=== PATIENT | male | born 1940 | race Caucasian/White ===

== ENCOUNTER 2017-05-30 12:30 | Outpatient (RCR) | payer MEDICARE, OTHER ==
[~2017-05-30 12:30] MED LIST: ASPIRIN 32325 MG/TAB PO; ASPIRIN 81M81 MG/TA2 PO; ASPIRIN E.C. 8181 MG PO; BYSTOLIC10 MG PO; CARAFATE 1GM1 G PO; CARDURA 8MG TAB8 MG PO; CARDURA4 MG PO; CEPHALEXIN500 M1 PO; DIOVAN; FLOVENT 110MCG7.9 GM IH; HYZAAR 12.5 MG-1 TAB PO; KLOR-CON 1010 MEQ PO; LEXAPRO 10MG10 MG PO; LIPITOR 10MG10 MG PO; PLAVIX 75MG TAB75 MG PO; PRILOSEC 20MG20 MG PO; PROSCAR 5MG5 MG PO; PROTONIX 40MG T40 MG PO; PROTONIX20 MG PO; ZYRTEC 10MG10 MG PO
== END 2017-08-28 | disposition home or self-care (01) ==
LOC: WSST
DX: R13.12 Dysphagia, oropharyngeal phase (principal)
CPT/HCPCS: G8996-GN; G8997-GN

== ENCOUNTER → 2017-06-04 | Outpatient (CLI) | payer MEDICARE, OTHER | LOC: COL.RAD 14:25 | DX: R13.19 Other dysphagia (principal) | CPT/HCPCS: G8996-GN; G8997-GN; G8998-GN ==

== ENCOUNTER → 2018-07-13 | Outpatient (CLI) | payer MEDICARE, OTHER ==
[~2018-07-13] MED LIST changes: -BYSTOLIC10 MG PO; +BYSTOLIC5 MG PO; +FLOMAX 0.40.4 MG/CAP PO; -LEXAPRO 10MG10 MG PO; +LEXAPRO20 MG PO; +MYRBETR50MG PO; +NATURAL IRON65 MG PO; +TYLENOL 500MG500 MG PO
[2018-07-13 13:13] LABS: COLLECTION METHOD CLEAN CATCH
[2018-07-13 13:21] LABS: MUCOUS Present /lpf; PH 6 (5-8); SQUAMOUS EPITHELIAL None Seen /hpf; URINE APPEARANCE Clear; URINE BACTERIA None Seen /hpf; URINE BILIRUBIN Negative (NEGATIVE); URINE BLOOD Negative (NEGATIVE); URINE COLOR Yellow; URINE GLUCOSE Negative (NEGATIVE); URINE KETONE Negative (NEGATIVE); URINE LEUKOCYTE ESTERASE Negative (NEGATIVE); URINE NITRATE Negative (NEGATIVE); URINE PROTEIN(semi-quant) Negative (NEGATIVE); URINE RBC 0-2 /hpf; URINE UROBILINOGEN Negative (NEGATIVE); URINE WBC 0-2 /hpf
== END ==
LOC: COL.LAB 12:39
PROVIDERS: Family Medicine
DX: R35.1 Nocturia (principal); R53.1 Weakness

== ENCOUNTER 2018-10-07 17:32 | Emergency (ER) | payer MEDICARE, OTHER ==
[~2018-10-07] VITALS: Ht 177.8 cm; Wt 81.8 kg
[2018-10-07 18:51] LABS: BASO % 0.3 % (0.0-2.0); EOS # 0.1 (0.0-0.7); EOS % 0.7 % (0-4.0); GRAN # 5.4 (1.4-6.5); GRAN % 76.1 % (42.2-75.2); HEMATOCRIT 39.9 % (42.0-52.0); HEMOGLOBIN 13.2 g/dl (13.5-18.0); LYMPH # 0.8 (1.2-3.4); LYMPH % 11.3 % (20.0-51.0); MEAN CELL VOLUME 82 fl (80.0-100.0); MEAN CORPUSCULAR HEMOGLOBIN 27 pg (27.0-31.0); MEAN CORPUSCULAR HGB CONC 33 g/dl (33.0-37.0); MEAN PLATELET VOLUME 10.5 fl (7.4-10.4); MONO # 0.8 (0.1-0.6); MONO % 11.3 % (1.7-9.3); PLATELET COUNT 253 K/mm3 (130-400); RED BLOOD COUNT 4.84 M/mm3 (4.20-5.60); REDCELL DISTRIBUTION WIDTH-CV 14.6 % (11.5-14.5)
[2018-10-07 19:00] LABS: ALBUMIN 4.2 gm/dL (3.5-5.0); CALCIUM 9.3 mg/dL (8.4-10.2); CREATININE, serum 0.99 mg/dL (0.66-1.25); POTASSIUM 4.1 mmol/L (3.4-5.0); TOTAL PROTEIN 7.2 gm/dL (6.4-8.2)
[2018-10-07] MEDS ORDERED: HYDROCORTISONE30 G3 TP (19:22)
[2018-10-07] MEDS ORDERED: HYZAAR 12.5 MG-1 TAB PO (19:24)
[2018-10-07] MEDS ORDERED: FLONASEALLERGY NS (19:26)
[2018-10-07] MEDS ORDERED: ZYRTEC 10MG10 MG PO (19:26)
[2018-10-07 21:13] LABS: COLLECTION METHOD CLEAN CATCH
[2018-10-07 21:25] VITALS: BP 160/83; PULSE 70
[2018-10-07 21:27] LABS: MUCOUS Present /lpf; PH 6 (5-8); SQUAMOUS EPITHELIAL None Seen /hpf; URINE APPEARANCE Clear; URINE BACTERIA None Seen /hpf; URINE BILIRUBIN Negative (NEGATIVE); URINE BLOOD Negative (NEGATIVE); URINE COLOR Yellow; URINE GLUCOSE Negative (NEGATIVE); URINE KETONE Negative (NEGATIVE); URINE LEUKOCYTE ESTERASE Negative (NEGATIVE); URINE NITRATE Negative (NEGATIVE); URINE PROTEIN(semi-quant) Negative (NEGATIVE); URINE RBC 0-2 /hpf; URINE UROBILINOGEN Negative (NEGATIVE)
== END 2018-10-07 21:25 | disposition short-term general hospital (02) ==
LOC: COL.ER 17:32
PROVIDERS: Family Medicine
DX: S12.100A Unspecified displaced fracture of second cervical vertebra, initial encounter for closed fracture (principal); J20.9 Acute bronchitis, unspecified; I10 Essential (primary) hypertension; F03.90 Unspecified dementia, unspecified severity, without behavioral disturbance, psychotic disturbance, mood disturbance, and anxiety; Z79.02 Long term (current) use of antithrombotics/antiplatelets; Z79.51 Long term (current) use of inhaled steroids; Z86.73 Personal history of transient ischemic attack (TIA), and cerebral infarction without residual deficits; W18.39XA Other fall on same level, initial encounter
CPT/HCPCS: A4216; J0696; J7030

== ENCOUNTER → 2018-11-26 | Outpatient (CLI) | payer MEDICARE ==
[~2018-11-26] MED LIST changes: +FLONASEALLERGY NS; +HYDROCORTISONE30 G3 TP
== END ==
LOC: COL.RAD 13:24
DX: S12.190D Other displaced fracture of second cervical vertebra, subsequent encounter for fracture with routine healing (principal); M46.92 Unspecified inflammatory spondylopathy, cervical region

== ENCOUNTER → 2019-01-02 | Outpatient (CLI) | payer MEDICARE | LOC: COL.RAD 09:48 | DX: S12.111D Posterior displaced Type II dens fracture, subsequent encounter for fracture with routine healing (principal); M47.812 Spondylosis without myelopathy or radiculopathy, cervical region ==

== ENCOUNTER → 2019-07-24 | Outpatient (CLI) | payer MEDICARE ==
[2019-07-24 18:01] LABS: BASO % 0.2 % (0.0-2.0); EOS # 0.1 (0.0-0.7); EOS % 1.3 % (0-4.0); GRAN # 6.8 (1.4-6.5); GRAN % 77.7 % (42.2-75.2); HEMATOCRIT 37.9 % (42.0-52.0); HEMOGLOBIN 12.1 g/dl (13.5-18.0); LYMPH # 0.8 (1.2-3.4); LYMPH % 8.8 % (20.0-51.0); MEAN CELL VOLUME 82 fl (80.0-100.0); MEAN CORPUSCULAR HEMOGLOBIN 26 pg (27.0-31.0); MEAN CORPUSCULAR HGB CONC 32 g/dl (33.0-37.0); MEAN PLATELET VOLUME 11.1 fl (7.4-10.4); MONO % 11.7 % (1.7-9.3); PLATELET COUNT 246 K/mm3 (130-400); RED BLOOD COUNT 4.62 M/mm3 (4.20-5.60); REDCELL DISTRIBUTION WIDTH-CV 15.2 % (11.5-14.5)
[2019-07-24 18:30] LABS: ALBUMIN 4.1 gm/dL (3.5-5.0); CALCIUM 9.4 mg/dL (8.4-10.2); CREATININE, serum 0.92 (0.66-1.25); POTASSIUM 3.9 mmol/L (3.4-5.0); TOTAL PROTEIN 6.6 gm/dL (6.4-8.2)
== END ==
LOC: ZCOL.LAB 15:58
PROVIDERS: Internal Medicine
DX: R41.82 Altered mental status, unspecified (principal)

== ENCOUNTER → 2020-03-29 | Outpatient (CLI) | payer MEDICARE ==
[2020-03-29 10:29] LABS: BILIRUBIN,TOTAL 0.6 mg/dL (0.0-1.0); CALCIUM 9.3 mg/dL (8.4-10.2); CREATININE, serum 0.83 (0.66-1.25); POTASSIUM 4.1 mmol/L (3.4-5.0); TOTAL PROTEIN 6.7 gm/dL (6.4-8.2)
[2020-03-29 10:38] LABS: BASO % 0.3 % (0.0-2.0); EOS # 0.3 (0.0-0.7); EOS % 3.7 % (0-4.0); GRAN # 5.1 (1.4-6.5); GRAN % 71.3 % (42.2-75.2); HEMATOCRIT 39.4 % (42.0-52.0); HEMOGLOBIN 12.6 g/dl (13.5-18.0); MEAN CELL VOLUME 83 fl (80.0-100.0); MEAN CORPUSCULAR HEMOGLOBIN 27 pg (27.0-31.0); MEAN CORPUSCULAR HGB CONC 32 g/dl (33.0-37.0); MEAN PLATELET VOLUME 10.8 fl (7.4-10.4); MONO # 0.7 (0.1-0.6); MONO % 10.3 % (1.7-9.3); PLATELET COUNT 250 K/mm3 (130-400); RED BLOOD COUNT 4.73 M/mm3 (4.20-5.60); REDCELL DISTRIBUTION WIDTH-CV 15.9 % (11.5-14.5)
== END ==
LOC: ZCOL.LAB 09:15
PROVIDERS: Internal Medicine
DX: C85.90 Non-Hodgkin lymphoma, unspecified, unspecified site (principal)

== ENCOUNTER → 2020-04-05 | Outpatient (CLI) | payer MEDICARE ==
[~2020-04-05] MED LIST changes: +ARTIFICIAL TEAR15 M7 OP; +B-121000 MCG PO; +DULCOLAX S10 MG/SUPP RC; +GOOD NEIGH1200 MG/15; +IMODIUM 2MG CAPS2 MG PO; +LEXAPRO 10MG10 MG PO; -LEXAPRO20 MG PO; +LOPRESSOR 225 MG/TAB PO; +MIRALAX PA17 GM/Dose PO; +MULTIPLE VITAMI1 TA1 PO; +NORVASC 10MG10 MG PO; +PROAIR HFA0.09 MG/AC IH; +REMERON 15M15 MG/TA1 PO; +SENNA-LAX8.6 MG PO; +SEROQUEL 2525 MG/TAB PO; +SINEMET 25/101 UDTAB PO; +SYSTANE 0.4%-0.1 SOL OP; +TUSSIN DM CLEA120 ML PO; +TYLENOL 325MG325 MG PO; +TYLENOL SU650 MG/SUP RC; +ULTRAM 50MG TAB50 MG PO
== END ==
LOC: ZCOL.LAB 17:24
DX: R50.81 Fever presenting with conditions classified elsewhere (principal); Z20.828 Contact with and (suspected) exposure to other viral communicable diseases

== ENCOUNTER 2020-04-08 15:20 | Inpatient (IN) | payer MEDICARE ==
[~2020-04-08] VITALS: Ht 175.3 cm; Wt 75.4 kg
[~2020-04-08 15:20] MED LIST changes: -ARTIFICIAL TEAR15 M7 OP; -B-121000 MCG PO; -DULCOLAX S10 MG/SUPP RC; -GOOD NEIGH1200 MG/15; -IMODIUM 2MG CAPS2 MG PO; -LOPRESSOR 225 MG/TAB PO; -MIRALAX PA17 GM/Dose PO; -MULTIPLE VITAMI1 TA1 PO; -NORVASC 10MG10 MG PO; -PROAIR HFA0.09 MG/AC IH; -REMERON 15M15 MG/TA1 PO; -SENNA-LAX8.6 MG PO; -SEROQUEL 2525 MG/TAB PO; -SINEMET 25/101 UDTAB PO; -SYSTANE 0.4%-0.1 SOL OP; -TUSSIN DM CLEA120 ML PO; -TYLENOL 325MG325 MG PO; -TYLENOL SU650 MG/SUP RC; -ULTRAM 50MG TAB50 MG PO
[2020-04-08 16:19] VITALS: BP 138/72; PULSE 92; TEMP 101.8
--- NOTE | 2020-04-08 16:29 | NUR ---
Pt to room 304, pt laying in bed, some groaning to verbal stimuli, occasional eye open response. Minimal response to verbal commands, unable to answer questions. Pt on room air, satting 93-94%. Pulses strong bilaterally. No edema noted. Breathing is labored, tachypneic. [facility]. Hospitalist aware pt is on floor.
[2020-04-08] MEDS ORDERED: TYLENOL SU650 MG/SUP RC (17:09)
[2020-04-08] MEDS ORDERED: TYLENOL 325MG325 MG PO (17:13)
[2020-04-08] MEDS ORDERED: PROAIR HFA0.09 MG/AC IH (17:17)
[2020-04-08] MEDS ORDERED: NORVASC 10MG10 MG PO (17:18)
[2020-04-08] MEDS ORDERED: ARTIFICIAL TEAR15 M7 OP (17:19)
[2020-04-08] MEDS ORDERED: DULCOLAX S10 MG/SUPP RC (17:21)
[2020-04-08] MEDS ORDERED: SINEMET 25/101 UDTAB PO (17:22)
[2020-04-08] MEDS ORDERED: B-121000 MCG PO (17:23)
[2020-04-08] MEDS ORDERED: IMODIUM 2MG CAPS2 MG PO (17:28)
[2020-04-08] MEDS ORDERED: LOPRESSOR 225 MG/TAB PO (17:30)
[2020-04-08] MEDS ORDERED: MIRALAX PA17 GM/Dose PO (17:31)
[2020-04-08] MEDS ORDERED: REMERON 15M15 MG/TA1 PO (17:33)
[2020-04-08] MEDS ORDERED: MULTIPLE VITAMI1 TA1 PO (17:35)
[2020-04-08] MEDS ORDERED: GOOD NEIGH1200 MG/15 (17:36)
[2020-04-08] MEDS ORDERED: SENNA-LAX8.6 MG PO (17:39)
[2020-04-08] MEDS ORDERED: SEROQUEL 2525 MG/TAB PO (17:40)
[2020-04-08] MEDS ORDERED: SYSTANE 0.4%-0.1 SOL OP (17:41)
[2020-04-08] MEDS ORDERED: ULTRAM 50MG TAB50 MG PO (17:46)
[2020-04-08] MEDS ORDERED: TUSSIN DM CLEA120 ML PO (17:47)
--- NOTE | 2020-04-08 19:47 | NUR ---
Pt laying in bed, still minimal response. Pt changed and gown placed on pt. Labs drawn. NS started at 100ml/hr. Pt doesn't appear to be in distress. Med rec completed by ERNESTINA Wiseman. Hospitalist aware. No episode of incontinence at this time. No further needs expressed. Report given to ERNESTINA Lea.
[2020-04-08 20:00] VITALS: BP 150/70; PULSE 84; TEMP 102.1
--- NOTE | 2020-04-08 20:00 | NUR ---
At time of assessment, patient is sleeeping in bed. He does not awaken to voice, but does open eyes to sternal rub. It takes him a few minutes to remain alert for more than a few seconds at a time. He does not answer any orientation questions; he only moans. Heart sounds are normal/regular, lungs are diminished in bases with expiratory wheezes bilaterally in upper lobes. No edema is present and patient does not appear to be in pain. Temperature is 102.1 at this time and Tylenol suppository 325 mg is adminsitered. Patient is not alert enough to swallow PO meds. He does not follow commands. Urine is obtained at this time via straight cath for UA. Patient is on RA and satting 94%. Will continue to monitor.
[2020-04-08 20:13] LABS: ALBUMIN 4.4 gm/dL (3.5-5.0); BILIRUBIN,TOTAL 1.3 mg/dL (0.0-1.0); CALCIUM 9.5 mg/dL (8.4-10.2); CREATININE, serum 0.9 (0.66-1.25); MAGNESIUM 2.1 mg/dL (1.6-2.3); POTASSIUM 3.6 mmol/L (3.4-5.0); TOTAL PROTEIN 7.8 gm/dL (6.4-8.2)
[2020-04-08 20:22] LABS: TROPONIN-I 0.014 ng/mL (0.000-0.035)
[2020-04-08 20:28] LABS: C-REACTIVE PROTEIN 16.8 mg/dL (0.0-0.9)
[2020-04-08 20:30] LABS: COLLECTION METHOD CLEAN CATCH
[2020-04-08 20:31] LABS: HEMATOCRIT 39.1 % (42.0-52.0); HEMOGLOBIN 12.3 g/dl (13.5-18.0); MEAN CELL VOLUME 86 fl (80.0-100.0); MEAN CORPUSCULAR HEMOGLOBIN 27 pg (27.0-31.0); MEAN CORPUSCULAR HGB CONC 32 g/dl (33.0-37.0); MEAN PLATELET VOLUME 10.5 fl (7.4-10.4); PLATELET COUNT 233 K/mm3 (130-400); RED BLOOD COUNT 4.57 M/mm3 (4.20-5.60); REDCELL DISTRIBUTION WIDTH-CV 15.7 % (11.5-14.5)
[2020-04-08 20:33] LABS: INR 1.2 (0.8-3.0); PROTHROMBIN TIME 12.9 SECONDS (9.7-12.8)
[2020-04-08 20:36] LABS: MUCOUS Present /lpf; PH 5 (5-8); SQUAMOUS EPITHELIAL 0-2 /hpf; URINE APPEARANCE Hazy; URINE BACTERIA None Seen /hpf; URINE BILIRUBIN Negative (NEGATIVE); URINE BLOOD Negative (NEGATIVE); URINE COLOR Amber; URINE GLUCOSE Negative (NEGATIVE); URINE KETONE Trace (NEGATIVE); URINE LEUKOCYTE ESTERASE Negative (NEGATIVE); URINE NITRATE Negative (NEGATIVE); URINE PROTEIN(semi-quant) 1+ (NEGATIVE); URINE UROBILINOGEN >=4.0 mg/dL (NEGATIVE)
[2020-04-08 22:43] LABS: BAND 27 % (0-10); LYMPHOCYTE 7 % (20.0-51.0); METAMYELOCYTE 1 % (0-0); NEUTROPHILS 60 % (42.0-75.2); PLATELET ESTIMATE NORMAL (NORMAL)
[2020-04-08 22:44] LABS: ANISOCYTOSIS 1+; HYPOCHROMIA 1+
[2020-04-09] VITALS (7 sets, daily range): BP systolic 120–156; BP diastolic 64–88; PULSE 67–90; TEMP 98.6–101.1
[2020-04-09 05:30] LABS: HEMOGLOBIN 11.8 g/dl (13.5-18.0); MEAN CELL VOLUME 84 fl (80.0-100.0); MEAN CORPUSCULAR HEMOGLOBIN 27 pg (27.0-31.0); MEAN CORPUSCULAR HGB CONC 32 g/dl (33.0-37.0); MEAN PLATELET VOLUME 10.6 fl (7.4-10.4); PLATELET COUNT 200 K/mm3 (130-400); RED BLOOD COUNT 4.38 M/mm3 (4.20-5.60); REDCELL DISTRIBUTION WIDTH-CV 15.8 % (11.5-14.5)
[2020-04-09 05:35] LABS: ALBUMIN 3.8 gm/dL (3.5-5.0); BILIRUBIN,TOTAL 1.1 mg/dL (0.0-1.0); CALCIUM 8.8 mg/dL (8.4-10.2); CREATININE, serum 0.89 (0.66-1.25); MAGNESIUM 2.2 mg/dL (1.6-2.3); POTASSIUM 3.9 mmol/L (3.4-5.0); TOTAL PROTEIN 6.9 gm/dL (6.4-8.2)
[2020-04-09 05:44] LABS: HEMATOCRIT 36.9 % (42.0-52.0)
[2020-04-09 05:58] LABS: ERYTHROCYTE SEDIMENTATION RATE 18 mm/hr (0-30)
[2020-04-09 06:03] LABS: BAND 23 % (0-10); HYPOCHROMIA 2+; LYMPHOCYTE 22 % (20.0-51.0); NEUTROPHILS 44 % (42.0-75.2); PLATELET ESTIMATE NORMAL (NORMAL)
[2020-04-09 06:04] LABS: ANISOCYTOSIS 1+
--- NOTE | 2020-04-09 06:16 | NUR ---
Patient has remained solmnolent throughout the night, arousing/opening eyes only to painful stimuli. He has been unable to take PO meds. His TMAX over the shift was 102.1 and Tylenol suppositories have been administered throughout the shift. Will continue to monitor.
--- NOTE | 2020-04-09 14:37 | NUR ---
The patient is COVID positive and has a past medical history of dementia. PARAS contacted the patient's , Nat (ph#[phone]), to discuss discharge plan. The patient resides at [facility] in long-term at [facility]. His PCP is Dr. Yasir Toribio and his advanced directives are in his chart. The patient's DPOA-HC is his . Nat reports that the plan is for the patient to return back to [facility] upon discharge. PARAS contacted and faxed updates to Jumana at [facility]. Jumana reports that they are figuring out what the plan will be for the patient when he returns, due to him being COVID positive. PARAS to continue to follow.
--- NOTE | 2020-04-09 19:36 | NUR ---
Pt assessment completed and charted. Pt more alert this morning, partially oriented, some garbled speech, difficult to understand. Medications administered per NOV. Pt tolerated well 1-2 at a time. Pt had temp of 100.3, received PO tylenol PRN. Next temp noted at 99.6. Pt has 18g LWR IV w/ NS @60ml/hr running w/o complications. Diet advanced to [facility] soft for dinner. Pt tolerating liquids fine. Tele dc'd per verbal order from Dr. Ratliff. Pt on room air, satting well. Insp/exp wheezes noted in LS. Pt has episodes of incontinence, wearing brief, assisted to bedside commode w/ no output. No edema noted, pulses strong bilaterally. pt cooperative w/ cares, denies pain, doesn't appear to be in distress. No further needs expressed.
--- NOTE | 2020-04-10 02:41 | NUR ---
Patient has been alert but confused this shift. Patient did requires one dose of tylenol for a low grade temperature. Patient had no complaints of pain or nausea this shift. Patient was able to maintain oxygen saturations while on room air.
[2020-04-10 04:36] VITALS: BP 138/72; PULSE 65; TEMP 98.2
[2020-04-10 08:00] VITALS: BP 128/72; PULSE 60; TEMP 99
[2020-04-10 08:12] LABS: HEMATOCRIT 37.9 % (42.0-52.0); HEMOGLOBIN 11.9 g/dl (13.5-18.0); MEAN CELL VOLUME 86 fl (80.0-100.0); MEAN CORPUSCULAR HEMOGLOBIN 27 pg (27.0-31.0); MEAN CORPUSCULAR HGB CONC 31 g/dl (33.0-37.0); MEAN PLATELET VOLUME 10.9 fl (7.4-10.4); PLATELET COUNT 194 K/mm3 (130-400); RED BLOOD COUNT 4.42 M/mm3 (4.20-5.60); REDCELL DISTRIBUTION WIDTH-CV 16.1 % (11.5-14.5)
[2020-04-10 08:30] LABS: ALBUMIN 3.6 gm/dL (3.5-5.0); BILIRUBIN,TOTAL 0.8 mg/dL (0.0-1.0); CALCIUM 8.6 mg/dL (8.4-10.2); CREATININE, serum 0.81 (0.66-1.25); POTASSIUM 4.1 mmol/L (3.4-5.0); TOTAL PROTEIN 6.6 gm/dL (6.4-8.2)
[2020-04-10 10:21] VITALS: BP 126/72; PULSE 60; TEMP 99
[2020-04-10 10:50] LABS: BAND 22 % (0-10); EOSINOPHIL 2 % (0-4); LYMPHOCYTE 25 % (20.0-51.0); NEUTROPHILS 33 % (42.0-75.2); PLATELET ESTIMATE NORMAL (NORMAL)
[2020-04-10 15:52] VITALS: BP 125/70; PULSE 55; TEMP 98.8
--- NOTE | 2020-04-10 17:41 | NUR ---
pt combative in morning when attempting to change his brief, pt incontinent x4 today, pt did not eat any food pt claimed he was not hungry, pt ripped out iv, new one started in RFA, fluids going, pt does not take pills well. pt hard to understand, hard to determine if oriented or confused do to inability to understand him. pt has remained afebrile and satting well on room air. no other needs at this time.
--- NOTE | 2020-04-10 18:01 | NUR ---
pt ate 4 bites of dinner, pt then refused the rest. pt appears to be hallucinating, i had noticed earlier he was miming the action of pulling something through his fingers and there was nothing there. while i was trying to help him eat he kept saying "look at the dog over there" and there was no dog in the room. the pt also stated he would eat the food he had in his hand instead of dinner when he did not have any food.
[2020-04-10 20:00] VITALS: BP 138/78; PULSE 72; TEMP 98.4
--- NOTE | 2020-04-10 22:00 | NUR ---
PT SOMEWHAT AGGRESSIVE DURING CARE. HE DENIES PAIN. NO INDICATION OF DYSPNEA AT REST THOUGH RESPIRATIONS INCREASE WHEN HE GETS AGITATED.
[2020-04-11] VITALS: BP 130/70; PULSE 68; TEMP 98.6
[2020-04-11 04:00] VITALS: BP 130/68; PULSE 70; TEMP 99.5
[2020-04-11 07:41] LABS: BASO % 0.3 % (0.0-2.0); EOS % 0.3 % (0-4.0); GRAN # 2.6 (1.4-6.5); GRAN % 65.5 % (42.2-75.2); HEMOGLOBIN 11.8 g/dl (13.5-18.0); LYMPH # 0.7 (1.2-3.4); LYMPH % 18.6 % (20.0-51.0); MEAN CELL VOLUME 83 fl (80.0-100.0); MEAN CORPUSCULAR HEMOGLOBIN 27 pg (27.0-31.0); MEAN CORPUSCULAR HGB CONC 32 g/dl (33.0-37.0); MEAN PLATELET VOLUME 10.8 fl (7.4-10.4); MONO # 0.6 (0.1-0.6); MONO % 14.8 % (1.7-9.3); PLATELET COUNT 170 K/mm3 (130-400); RED BLOOD COUNT 4.43 M/mm3 (4.20-5.60); REDCELL DISTRIBUTION WIDTH-CV 15.3 % (11.5-14.5)
[2020-04-11 07:44] LABS: HEMATOCRIT 36.7 % (42.0-52.0)
[2020-04-11 09:24] VITALS: BP 122/70; PULSE 65; TEMP 100.1
--- NOTE | 2020-04-11 09:40 | NUR ---
PT MEDICATIONS GIVEN CRUSHED IN APPLESAUCE. PT DID NOT WANT TO TAKE THEM, TOOK A LOT OF CONVINCING BEFORE ADMINISTRATION, PT REFUSED HEPARIN SHOT. PT COMBATIVE WITH NIGHTS, DISAGREEABLE DURING BED CHANGE AND BED BATH THAT WAS GIVEN. PT HAD FEVER SO TYLENOL SUPPOSITORY GIVEN. DURING BED CHANGE DISCOVERED PT HAD BM, SMALL AMOUNT AND BROWN. ORAL CARE PROVIDED. ASSESSMENT PERFORMED, VITALS TAKEN. ATTEMPTED TO FEED PT BREAKFAST, HE TOOK ONE BITE BEFORE REFUSING THE REST.
[2020-04-11 12:42] VITALS: BP 132/67; PULSE 94; TEMP 100
[2020-04-11 14:43] LABS: ALBUMIN 3.2 gm/dL (3.5-5.0); BILIRUBIN,TOTAL 0.8 mg/dL (0.0-1.0); CALCIUM 8.3 mg/dL (8.4-10.2); CREATININE, serum 0.71 (0.66-1.25); TOTAL PROTEIN 5.9 gm/dL (6.4-8.2)
[2020-04-11 15:15] VITALS: BP 135/64; PULSE 75; TEMP 100.1
--- NOTE | 2020-04-11 17:12 | NUR ---
PT INCONTINENT X3. BED BATH PROVIDED, WASHED PT HAIR, ORAL CARE PROVIDED, SHEETS CHANGED, INCONTINENT/PERICARE PROVIDED. PT DID NOT EAT BREAKFAST OR LUNCH. TALKED TO NURSE AT [facility] FOR UPDATE. TALKED TO PT AND WENT IN TO ANSWER THE PHONE FOR PT. PT SEEMED PLEASE TO TALK TO . INFORMED ME HE LIKED ICECREAM AND HAM SANDWICHES, SOMETIMES TURKEY TOO. BROUGHT IN ICE CREAM AND TURKEY SANDWICH. PT ATE 75% OF ICE CREAM CUP, REFUSED THE SANDWICH. PT CONTINUALLY RUNNING FEVER DESPITE TYLENOL ADMINISTRATION. USED MOSTLY TYLENOL SUPPOSITORY DUE TO PT BEING NONCOMPLIANT WITH PILLS. PT VITALS STABLE, PT HAS ACTIVE NON PRODUCTIVE COUGH.
--- NOTE | 2020-04-11 19:15 | NUR ---
Received report from Celine. Seen patient awake, lying in bed. Bed alarm on. He is alert and talking but can't hardly understand what he's trying to say. With IV on righ forearm, infusing NS at 60ml/hr. With SCD on both lower extremities. On room air. Not in distress.
[2020-04-11 20:33] VITALS: BP 110/80; PULSE 62; TEMP 99.5
--- NOTE | 2020-04-11 21:00 | NUR ---
Day shift nurse endorsed that patient likes ice cream and doesn't take his pills very well. Due meds for tonight were crushed and mixed with chocolate ice cream. At first, patient doesn't want to take it but able to convinced him and gave it to him. He requested for water and when I'm about to give it to him, he became aggressive and doesn't want to drink it.
[2020-04-12 00:08] VITALS: BP 132/82; PULSE 78; TEMP 100.4
--- NOTE | 2020-04-12 00:40 | NUR ---
Changed patient's briefs and repositioned him. Patient's temp is 100.4F. Tylenol suppository given.
[2020-04-12 04:00] VITALS: BP 124/74; PULSE 74; TEMP 100.4
--- NOTE | 2020-04-12 05:30 | NUR ---
Patient's temp is 100.4F. Tylenol suppository given. Briefs were changed and repositioned patient. He is still have some episodes of resisting whenever a procedure needs to be done. Oral care done using swabs.
[2020-04-12 07:14] LABS: ALBUMIN 3.4 gm/dL (3.5-5.0); BILIRUBIN,TOTAL 0.7 mg/dL (0.0-1.0); CALCIUM 8.3 mg/dL (8.4-10.2); CREATININE, serum 0.68 (0.66-1.25); MAGNESIUM 2.1 mg/dL (1.6-2.3); POTASSIUM 3.5 mmol/L (3.4-5.0); TOTAL PROTEIN 6.4 gm/dL (6.4-8.2)
[2020-04-12 07:18] LABS: BASO % 0.2 % (0.0-2.0); EOS % 0.2 % (0-4.0); GRAN % 78.2 % (42.2-75.2); HEMOGLOBIN 11.4 g/dl (13.5-18.0); LYMPH # 0.6 (1.2-3.4); LYMPH % 11.6 % (20.0-51.0); MEAN CELL VOLUME 82 fl (80.0-100.0); MEAN CORPUSCULAR HEMOGLOBIN 26 pg (27.0-31.0); MEAN CORPUSCULAR HGB CONC 32 g/dl (33.0-37.0); MEAN PLATELET VOLUME 10.7 fl (7.4-10.4); MONO # 0.5 (0.1-0.6); MONO % 9.4 % (1.7-9.3); PLATELET COUNT 171 K/mm3 (130-400); RED BLOOD COUNT 4.35 M/mm3 (4.20-5.60); REDCELL DISTRIBUTION WIDTH-CV 14.9 % (11.5-14.5)
[2020-04-12 07:20] LABS: HEMATOCRIT 35.6 % (42.0-52.0)
[2020-04-12 09:49] VITALS: BP 158/88; PULSE 86; TEMP 100.4
--- NOTE | 2020-04-12 10:36 | NUR ---
PT TOOK MEDS IN CHOCOLATE PUDDING. PT INCONTINENT, PT HAD SMEAR OF BM. PT ABD DISTENDED, BS HYPOACTIVE, PT LESS RESPONSIVE, PT COMBATIVE WITH BRIEF CHANGE AND BED BATH AND DANILO CARE THAT WAS PROVIDED, VITALS TAKEN, TYLENOL SUPPOSITORY GIVEN FOR FEVER OF 100.4. DURING CHANGING PT WAS LAYING FLAT AND HAD DYSPNEA. ONCE SITTING UP PT WAS BREATHING NORMALLY AGAIN. PT O2 SAT 95 ON ROOM AIR EVEN WITH DYSPNEA. PT ATE ALL OF CHOCOLATE PUDDING, PT ATE 10 BITES OF PANCAKE WITH SYRUP, PT TOOK A FEW SIPS OF WATER. STILL LOW PO INTAKE. PT NOT COOPERATIVE WITH EYE DROPS SO NOT GIVEN. PT CURRENTLY SLEEPING, IV FLUIDS GOING.
[2020-04-12 12:26] VITALS: PULSE 66; TEMP 99.6
--- NOTE | 2020-04-12 12:30 | NUR ---
PT LIMBS TOO STIFF TO TAKE BP, PT PULLS ARMS TIGHTER TO CHEST WHEN ATTEMPTED. OTHER VITALS STABLE. PT BRIEF CHECKED AND CLEAN. POTASSIUM HUNG. NO OTHER NEEDS AT THIS TIME.
--- NOTE | 2020-04-12 13:42 | NUR ---
PT TOOK 2 BITES OF PUDDING, REFUSED LUNCH AND REFUSED REST OF PUDDING. WILL ATTEMPT AGAIN.
--- NOTE | 2020-04-12 14:05 | NUR ---
Spoke with Nat by phone for palliative care consult and to give update. states very openly that the thing that will help Jonathan most to improve would be a visit from her. She has not seen him since November when visitation was shut down. She is still hopeful that he will recover from the COVID virus and will be able to return to [facility] where he has been prior to this admission. Dr Ratliff wanted us to begin the discussion of where do we go from here and what is the plan if he is able to improve andif he does not improve. I spoke with Jumana at [facility] and she reports that at this time he would return directly to [facility] They would be able to offer comfort care, if that is the family wish, but are not allowing hospice into their facility at this time. Nat is still wanting to continue supportive cares for Jonathan. 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 Making a mess is very upsetting to him. She recommends trying spoon fed shakes. Again she reports that what will help him the most is a visit from her. In the mean time she will talk with her children about what is happening and where we go from here, how aggressive do they want us to be and we will talk again soon.
--- NOTE | 2020-04-12 14:37 | NUR ---
PT BRIEF CHECKED, NO INCONTINENCE, NEW POTASSIUM BAG HUNG, PT STILL SOMNOLENT BUT COMBATIVE WITH MOVEMENT. PT KEEPS EYES CLOSED.
[2020-04-12 15:34] VITALS: PULSE 69; TEMP 100.7
--- NOTE | 2020-04-12 16:12 | NUR ---
Front Desk Agent faxed clinical updates to Jumana at [facility] to continue to follow.
--- NOTE | 2020-04-12 16:13 | NUR ---
The patient had a pallative care consult. Lori Hudson, Pallative Care Nurse spoke with the patient's , Nat. After this consult, Bryologist contacted Nat to discuss options. Nat states she would like to take the evening to discuss options with her children. Will continue to follow.
--- NOTE | 2020-04-12 16:49 | NUR ---
PT ATE TWO CHOCOLATE PUDDINGS. TYLENOL GIVEN FOR FEVER. INCONTINENT CARE PROVIDED FOR PT.
--- NOTE | 2020-04-12 17:26 | NUR ---
PT INCONTINENT X2 ON SHIFT. SUPPOSITORY GIVEN FOR BM, NO RESULTS AT THIS TIME. PT STILL RUNNING FEVERS, TYLENOL ADMINISTERED. PT NOT RESPONSIVE YESTERDAY, ONLY OPENS EYES OCCASIONALLY. ATE 3 CHOCOLATE PUDDINGS TOTAL TODAY. REFUSED LUNCH. PT LIMBS RIGID, KAITLIN IQBAL, RN, TALKED TO ABOUT PALLIATIVE CARE. PT'S WANTS TO CONTINUE TREATMENT AT THIS TIME.
[2020-04-12 21:20] VITALS: BP 126/76; PULSE 65; TEMP 101.1
--- NOTE | 2020-04-12 22:45 | NUR ---
Pt assessment completed and documented. Pt drowsy but arousable to stimulation. HS meds were given crushed in chocolate pudding. Pt swallowed most of pudding with meds but did spit a small amount of pudding at RN. Pt incontinent of medium, loose bowel movement- brief changed at this time. Pt became combative when changing brief and also had some dyspnea when rolling in bed. Once pt was cleaned up and sitting up again in bed, his breathing returned to baseline. Oral PRN tylenol given per orders for temp of 101.1. IVF infusing per orders to right forearm IV site. Pt denies any other needs. Call light within reach. Bed alarm on. Will continue to monitor.
[2020-04-13 00:52] VITALS: BP 130/82; PULSE 69; TEMP 99.5
[2020-04-13 04:19] VITALS: BP 106/64; PULSE 73; TEMP 99.3
--- NOTE | 2020-04-13 06:35 | NUR ---
Pt had uneventful shift. Pt rested well in bed overnight. No s/s of pain seen throughout the night. IVF infusing per orders to right forearm IV site. Pt had 1 BM last night in which he became combative when changing him. Pt denies any needs. Call light within reach. Bed alarm on. Will continue to monitor.
--- NOTE | 2020-04-13 07:36 | NUR ---
Report given to ERNESTINA Groves
[2020-04-13 07:53] LABS: BASO % 0.2 % (0.0-2.0); EOS % 0.7 % (0-4.0); GRAN # 4.3 (1.4-6.5); GRAN % 73.8 % (42.2-75.2); HEMOGLOBIN 11.3 g/dl (13.5-18.0); LYMPH # 0.9 (1.2-3.4); LYMPH % 14.7 % (20.0-51.0); MEAN CELL VOLUME 82 fl (80.0-100.0); MEAN CORPUSCULAR HEMOGLOBIN 27 pg (27.0-31.0); MEAN CORPUSCULAR HGB CONC 33 g/dl (33.0-37.0); MEAN PLATELET VOLUME 10.6 fl (7.4-10.4); MONO # 0.6 (0.1-0.6); MONO % 10.1 % (1.7-9.3); PLATELET COUNT 160 K/mm3 (130-400); RED BLOOD COUNT 4.27 M/mm3 (4.20-5.60); REDCELL DISTRIBUTION WIDTH-CV 15.2 % (11.5-14.5)
[2020-04-13 07:57] LABS: HEMATOCRIT 34.8 % (42.0-52.0)
[2020-04-13 08:16] LABS: ALBUMIN 3.3 gm/dL (3.5-5.0); BILIRUBIN,TOTAL 0.7 mg/dL (0.0-1.0); CALCIUM 8.1 mg/dL (8.4-10.2); CREATININE, serum 0.72 (0.66-1.25); POTASSIUM 3.7 mmol/L (3.4-5.0)
[2020-04-13 10:01] VITALS: BP 140/82; PULSE 69; TEMP 104.1
--- NOTE | 2020-04-13 13:23 | NUR ---
I spoke with Nat Daley today after she had talked with Dr Ratliff. She reports that after talking with her children, that they are wanting to continue support for "a couple more days" and then would consider comfort care. She asked if he could do comfort care at the hospital until his and I had to advise here that usually we can do comfort care for 24-48 hours but with the plan that pt would be moving on to their final location. She is just worried about moving him causing him discomfort. Support was provided. Visitation is a big desire by the but at this time we do not allow visitors for our covid pts and I do not believe that [facility] is allowing visitors either.
[2020-04-13 15:08] VITALS: BP 132/65; PULSE 71; TEMP 99.3
--- NOTE | 2020-04-13 16:02 | NUR ---
Lori, Palliative Care Nurse, talked to the patient's , Nat, about goals of care. The patient's and family would like to continue supportive treatment for a couple more days and see how he does. If no improvements, then they would consider hospice. PARAS contacted the patient's and reviewed the above information. Nat confirms this. She is hopeful the patient will improve, but understands that there is high chance that he will not. Nat inquired about the patient returning back to [facility] on hospice and how that would look like. She states that she was told that the patient does have a room ready for him back at [facility] when he returns. PARAS faxed updates and left a message for Jumana at [facility]. PARAS to continue to follow.
--- NOTE | 2020-04-13 16:24 | NUR ---
Jumana, at [facility], reports that they are not be able to do hospice services on campus at this time. She states that they have offered the potential option for him to return on comfort measures to the , but visitors are not allowed and the was concerned about not being able to see him. SW to continue to follow.
[2020-04-13 18:18] VITALS: BP 122/78; PULSE 83; TEMP 98.8
--- NOTE | 2020-04-13 19:19 | NUR ---
Patient is not alert or oriented, on room air. o2 saturation at 93%-94%. Fever of 104.1F this morning. Administered Tylenol for fever. Dr Martinez informed of patient status. Fever dropped to 98.8 this evening. Mental status improved this evening. called and spoke to patient. Poor appetite, eat 20-35% of meals.
--- NOTE | 2020-04-13 22:00 | NUR ---
Pt is alert to voice and able to speak with some confused speech. Able to state his name but unable to voice orientation and situation. Meds administered crushed with applesauce. T99.9, will monitor. Pt appears tense laying in bed and moans when changing and repositioning pt in bed. Pt prefers to lay on his right side.Sacral area reddened but blanchable. SCD in place to BLE. IV to RFA intact with fluids infusing.Will monitor pt. Call light within reach.
[2020-04-13 22:06] VITALS: BP 144/88; PULSE 70; TEMP 99.9
[2020-04-14 01:29] VITALS: BP 148/92; PULSE 72; TEMP 99.6
[2020-04-14 04:45] VITALS: BP 124/44; PULSE 60; TEMP 99.2
--- NOTE | 2020-04-14 06:30 | NUR ---
Pt incontinent of urine, briefs changed, turned and repositioned. Bed alarm set.
--- NOTE | 2020-04-14 06:56 | NUR ---
Report given to ERNESTINA Bailon.
[2020-04-14 07:45] VITALS: BP 123/54; PULSE 60; TEMP 99.8
--- NOTE | 2020-04-14 09:49 | NUR ---
Assessment complete. Patient lying in bed asleep on entry, awoke after persistent stimulation but stayed awake once eyes opened. I assisted in cleaning his eyes for him as lacrimal drainage had dried up and stuck one eye closed. This was resolved with a warm wet tissue, patient was very appreciative. He did not respond to any of my questions but spoke when he needed something. No incontinence at this time. Took some of his medications but began refusing them, vitamins were not given but others were taken well crushed in apple sauce. He also took a few sips of his shake on his breakfast tray but that was it. Bed alarm is set. No other needs at this time. Continuing to monitor.
--- NOTE | 2020-04-14 11:21 | NUR ---
The patient's called PARAS. SW provided support but we did not discuss the plan at this time. Will continue to follow.
[2020-04-14 11:26] VITALS: BP 116/46; PULSE 63; TEMP 1001
--- NOTE | 2020-04-14 11:32 | NUR ---
patient refused the remaining medications, even tried pudding. Patient speaks clearly for first couple words and then begin speaking inaudible gibberish. No signs of pain or discomfort at this time. Patient refuses to lay on other side at this time, he barley wanted me to touch his right arm to take his blood pressure which I assume is because he did not want me to roll him. Continuing to monitor. Bed alarm is set.
--- NOTE | 2020-04-14 14:00 | NUR ---
Patient refused to eat lunch. Nurse aid attempted and patient swatter her hand away. Will continue to encourage PO intake. Continuing to monitor. Call light is in reach, bed alarm is set.
--- NOTE | 2020-04-14 14:40 | NUR ---
Attempted to call Nat @ [phone] but I had to leave a message. Will continue to follow along.
--- NOTE | 2020-04-14 15:30 | NUR ---
On entry to patient's room he was mumbling to himself and he had pulled his lunch into his bed. A full bed change was performed at this time. Then patient stated that he had urinated. A new brief and david were provided. Patient was repositioned at this time. He fights laying on his left side but I was able to put a pillow under his right side in an effort to shift his weight. Patient was comfortable and resting when I left the room. Bed alarm is set. Call light is in reach.
[2020-04-14 15:50] VITALS: BP 158/67; PULSE 72; TEMP 100.4
--- NOTE | 2020-04-14 15:59 | NUR ---
Nat returned my call today. She reports that she talked with Jonathan last night by phone and he was able to carry on a conversation and seemed to be doing much better. Advised that he is still not eating or drinking much at all today and had been refusing to take most of his medications. He spit at the aide when she was in trying to clean up the tray he dumped on the bed. is aware that she had asked for two more days and that tomorrow will be the second day. She is still very hopeful that he will continue to improve. This was discussed with Dr Diop.
--- NOTE | 2020-04-14 16:44 | NUR ---
Radiology Nurse, Adamaris faxed updates to Jumana at [facility].
--- NOTE | 2020-04-14 17:12 | NUR ---
Patient has had 2 episodes of urine incontinence today and has eaten very little. Patient is currently comfortable and resting at this time. No other needs were expressed at this time. Bed alarm is set, call light is in reach.
--- NOTE | 2020-04-14 18:40 | NUR ---
Patient was offered dinner and checked for incontinence at this time. Pt is dry and refused dinner, stated "I am not hungry I just ate pizza". Speech continues to be confused and mumbled. Patient is now comfortable and resting. No other needs were expressed. Bed alarm set. Tv on. Call light in reach.
[2020-04-14 20:11] VITALS: BP 142/93; PULSE 76; TEMP 101.1
[2020-04-15 00:04] VITALS: BP 117/73; PULSE 84; TEMP 100.6
--- NOTE | 2020-04-15 02:03 | NUR ---
Received report from ERNESTINA Bailon. Pt alert to voice, confused with mumbled speech, but able to occasionally follow directions. Pt refused dinner. Pt refused PO medications . Pt appears comfortable in bed. Incontinent of urine, briefs changed, repositioned. Fluids infusing to RFA, dressing CDI. Bed alarm set. SCD in place to BLE. Will monitor pt.
[2020-04-15 03:52] VITALS: BP 147/51; PULSE 81; TEMP 100.6
--- NOTE | 2020-04-15 05:43 | NUR ---
PT incontinent of urine. Briefs changed x3 during this shift. Attempted to reposition pt in bed but pt prefers laying on his Rt side. Pillow placed between knees. Sacral area reddened but blanchable. SCD removed at this time. Bed alarm set.
--- NOTE | 2020-04-15 07:27 | NUR ---
Report given to ERNESTINA Berger.
[2020-04-15 08:53] VITALS: BP 124/77; PULSE 80; TEMP 100.1
--- NOTE | 2020-04-15 09:15 | NUR ---
PT MORE ALERT. SOME SPEECH IS VERY CLEAR, SOME MUMBLED. PT WOULD NOT TAKE MEDICATIONS. PT REFUSED BREAKFAST. PT REQUESTED ICE CREAM, TOOK ONE BITE, AND THEN DID NOT WANT ANYMORE. PT ON FLUIDS. PT ASSESSMENT PERFORMED. TYLENOL SUPPOSITORY GIVEN FOR FEVER. PT VERY STIFF WITH MOVING IN THE BED. PT INCONTINENT, DANILO CARE PROVIDED. NO OTHER NEEDS AT THIS TIME.
--- NOTE | 2020-04-15 11:20 | NUR ---
Per Dr. Diop. There will be a phone call to the patient's regarding goals of care with Dr. Diop, Lori Hudson, [facility] nurse, and this SW, this day. Will continue to monitor.
--- NOTE | 2020-04-15 12:25 | NUR ---
PT NOT INCONTINENT AT THIS TIME. PT REFUSED CHOCOLATE ICE CREAM. PT STATES HE DOES NOT WANT ANYTHING TO EAT. PT ATTEMPTED TO BE REPOSITIONED BUT PT MOVES BACK TO RIGHT SIDE.
[2020-04-15 12:26] VITALS: BP 124/78; PULSE 81; TEMP 99.6
--- NOTE | 2020-04-15 13:29 | NUR ---
Ux Visual Designer attended a meeting with the patient's , Nat via speaker phone with Dr. Diop and Lori Hudson [facility] nurse. Dr. Diop discussed the patient's condition and what are the goals for care. PARAS contacted the patient's son Jonathan and had him on speaker phone as well. Nat and Jonathan would like to discuss the course of care. A meeting with Lori and PARAS was set for 1529, later this day.
--- NOTE | 2020-04-15 15:22 | NUR ---
Conference call was placed to Nat with Dr Diop and with Angelica, social sciences lecturer at lunch time. Dr Diop presented his findings from today's visit to and at one point her son was also called and included on the call. The two family members would like to talk more and then requested that we call back around 1530.
--- NOTE | 2020-04-15 15:50 | NUR ---
Watch Assembly Inspector and Lori had a meeting with Nat and her children via speaker phone. Lori discussed the options of treatment vs comfort care. Their decision was to return to [facility] at [facility]. They would like for the patient to return tomorrow, 04/16. PARAS informed Jumana with [facility] and faxed updates. Her team will need to review the notes before taking the patient back. Will continue to follow.
[2020-04-15 15:57] VITALS: BP 142/91; PULSE 99; TEMP 99.4
--- NOTE | 2020-04-15 16:03 | NUR ---
PT INCONTINENT. PT TEMPERATURE 99.4. PT REFUSED WATER, ATTEMPTED ORAL CARE, PROVIDED BUT PT BITING DOWN ON BRUSH. PT MUMBLING AND ACTIVE IN BED. PT CURLED UP ON HIS RIGHT SIDE. PT DOES NOT LIKE LAYING ON ANY OTHER SIDE. PT VERY STIFF AND HARD TO MOVE. PERICARE PROVIDED FOR INCONTINENCE AND NEW BRIEF PUT ON PT. PT BREATHING LABORED AT THIS TIME. WILL BOOST PT AND KEEP HEAD RAISED TO SEE IF THIS HELPS PT. PT O2 SATS STABLE AT THIS TIME.
--- NOTE | 2020-04-15 16:08 | NUR ---
Phone call was held with Nat and her two adult children and Angelica Farmer LMSW and myself. We did talk about what their concerns were and that what we are doing here now is not turning things around. The issue with him not being willing to eat or drink or take his medications was reviewed and family reports that they are not interested in a feeding tube. It might be that he would be more likely to eat and drink in a familiar environment where he is feeling comfortable. Reviewed briefly what comfort care is and that medications for pain anxiety, fever, and other issues would be available. They are aware that [facility] does not provide IV fluids. I do not know how he will respond to the move but after a long discussion, the family has all agreed that he should return to [facility] on comfort care. I notified Dr Diop of this decision and Angelica will follow through with transfer back there tomorrow. They had been told he might have a pneumonia but reports to us that he had a lung cancer that has caused a dense area in his left lowerlung and she does not believe that antibiotic would be helpful. Support provided.
--- NOTE | 2020-04-15 17:26 | NUR ---
PLAN TO DC BACK TO [facility] TOMORROW. PT ALERT AND ACTIVE IN THE BED, STILL WILL ONLY LAY ON RIGHT SIDE. PT DANILO AREA INTACT. PT REFUSED MEDS AND MEALS. ONLY TOOK A FEW BITES OF LUNCH. PT FEVERS BEEN IN 99 DEGREE RANGE. ORAL CARE PROVIDED TODAY, PERICARE PROVIDED, PT INCONTINENT OF URINE X2 TODAY.
[2020-04-15 20:07] VITALS: BP 156/70; PULSE 76; TEMP 100.3
--- NOTE | 2020-04-15 20:30 | NUR ---
Initial shift assessment done- VSS,except for temp of 100.3,,will give Tylenol suppository as ordered, repositioned in bed, incontinent of urine -personal care given,..did take his meds crushed in pudding with MUCH encouragement- doesnt want to open eyes, mumbling, confused--wants to only lay on right side,tried to put pillow under right side and he pushes it out-- does not answer any questions- bed alarm on, in Isolation for covid +,,IV fluids of NS at 60cc/hr to R/FA INT.
[2020-04-16 02:30] VITALS: BP 138/54; PULSE 70; TEMP 101
--- NOTE | 2020-04-16 02:47 | NUR ---
temp up to 101,,Tylenol suppository given, incontinent of urine-cleaned up,, was able to reposition patient on his left side at this time. Remains [id number].
--- NOTE | 2020-04-16 04:24 | NUR ---
Has been sleeping very quietly since the last turn-calm--temp down to 100.0
[2020-04-16 05:15] VITALS: TEMP 100
[2020-04-16 06:38] LABS: EOS # 0.1 (0.0-0.7); GRAN # 3.9 (1.4-6.5); GRAN % 77.4 % (42.2-75.2); HEMOGLOBIN 10.6 g/dl (13.5-18.0); LYMPH # 0.5 (1.2-3.4); LYMPH % 10.4 % (20.0-51.0); MEAN CELL VOLUME 81 fl (80.0-100.0); MEAN CORPUSCULAR HEMOGLOBIN 26 pg (27.0-31.0); MEAN CORPUSCULAR HGB CONC 32 g/dl (33.0-37.0); MEAN PLATELET VOLUME 10.9 fl (7.4-10.4); MONO # 0.6 (0.1-0.6); MONO % 10.8 % (1.7-9.3); PLATELET COUNT 224 K/mm3 (130-400); RED BLOOD COUNT 4.06 M/mm3 (4.20-5.60); REDCELL DISTRIBUTION WIDTH-CV 14.9 % (11.5-14.5)
[2020-04-16 06:43] LABS: HEMATOCRIT 32.8 % (42.0-52.0)
[2020-04-16 06:45] LABS: CALCIUM 7.8 mg/dL (8.4-10.2); CREATININE, serum 0.6 (0.66-1.25); POTASSIUM 3.5 mmol/L (3.4-5.0)
--- NOTE | 2020-04-16 08:33 | NUR ---
Jumana from [facility] contacted . She states she will meet with the team to ensure it is okay to take the patient and inquired about him going back on comfort measures. Will continue to follow.
[2020-04-16 09:22] VITALS: BP 156/86; PULSE 70; TEMP 100.9
--- NOTE | 2020-04-16 09:25 | NUR ---
PT ASLEEP IN BED. PT LIMBS LESS RIGID, PT LESS RESISTANT TO VITAL SIGNS. PT BREATHING APPEARS LABORED AT REST. O2 SATS WITHIN NORMLA RANGE. LUNG SOUNDS DIM. PT RUNNING FEVER. PT BRIEF CHECKED AND PT WAS NOT INCONTINENT AT THIS TIME. PT TOOK CRUSHED MEDS IN PUDDING. PT WOULD NOT TAKE WHOLE PILLS IN PUDDING. PT SPIT OUT BREAKFAST. PT TOOK A FEW SIPS OF WATER. TYLENOL ADMINISTERED PO CRUSHED IN PUDDING. NO OTHER NEEDS AT THIS TIME.
[2020-04-16 12:40] VITALS: BP 156/86; PULSE 70; TEMP 100.9
[2020-04-16] MEDS ORDERED: ROXANOL 20MG20 MG/ML SL (12:42)
--- NOTE | 2020-04-16 13:49 | NUR ---
The patient is to discharge today, 04/16 to [facility] on comfort measures. EMS to transport the patient at 1330. PARAS informed the team and the patient's , Nat. They were in agreeance with this time. PARAS faxed discharge orders. PARAS presented the IM form to Nat via telephone. She understood and gave SW permission to sign the form on her behalf. A copy was provided to the patient and original was placed in the chart. There are no additional needs at this time.
--- NOTE | 2020-04-16 13:51 | NUR ---
pt iv removed, packet put together, opioid perscription in sealed packet with other pt information. bed bath given, pt transferred to ems stretcher adn taken out. no belongings brought with pt. will call report.
--- NOTE | 2020-04-16 14:03 | NUR ---
called report to dipti kearney.
== END 2020-04-16 13:50 | disposition hospice, home (50) | DRG 177 ==
LOC: MEDICAL 15:20 → PEDS 16:07
PROVIDERS: Hospitalist; Physician Assistant; ADMIT Internal Medicine
DX: U07.1 COVID-19 (principal); J18.9 Pneumonia, unspecified organism; E43 Unspecified severe protein-calorie malnutrition; G93.40 Encephalopathy, unspecified; F01.51 Vascular dementia, unspecified severity, with behavioral disturbance; C85.90 Non-Hodgkin lymphoma, unspecified, unspecified site; I10 Essential (primary) hypertension; Z51.5 Encounter for palliative care; F32.9 Major depressive disorder, single episode, unspecified; E86.0 Dehydration; Z66 Do not resuscitate; R13.10 Dysphagia, unspecified; D64.9 Anemia, unspecified; Z96.653 Presence of artificial knee joint, bilateral
CPT/HCPCS: 99223-AI; 99232-AI; 99233-AI; 99239; J1644; J1650; J3480; J7030